=== PATIENT | female | born 1980 | race American Indian/Alaskan Native ===

== ENCOUNTER 2021-11-01 20:21 | Emergency (ER) | payer OTHER ==
[2021-11-01 21:28] VITALS: BP 132/95
[2021-11-01] MEDS ORDERED: BUTALB/ACETAMINOPHEN/CAFFEINE TAB PO ONE (21:37)
[2021-11-01] MEDS ORDERED: KETOROLAC 30 MG/1 ML INJ IM ONE (21:37)
[2021-11-01] MEDS ORDERED: ONDANSETRON 4 MG ODT TAB PO ONE (21:37)
[2021-11-01] MEDS ORDERED: diazePAM 5 MG TAB PO ONE (21:38)
--- NOTE | 2021-11-01 22:11 | Emergency Department Report ---
ED Headache HPI - General Chief Complaint: Headache Stated Complaint: HEADACHE/BLOOD PRESSURE/LT ARM PAIN - History of Present Illness Initial Comments: Patient is a 41-year-old -Portuguese female with a history of migraine headaches who presents to the ED with complaint of acute onset persistent headache which initially was occipital in location but has since spread globally with nausea for the last 2 days. Patient states that her blood pressure was also initially evaluated. Patient denies dizziness, syncope, vomiting, chest pain or shortness of breath, change in vision, neck pain, abdominal pain, fever, chills, traumatic injury, seizures or lifting and back pain. Timing/Duration: constant, waxing and waning, other (2 days) Quality: severe, constant, pressure, sharp, throbbing Head Injury Location: global Recent Head Trauma: chronic headaches Associated Symptoms: denies symptoms, nausea/vomiting. denies: confusion, fatigue, facial pain, fever/chills, flushing, loss of consciousness, nasal congestion, nasal drainage, numbness in legs/feet, rash, seizures, sinus infection, stiff neck, weakness Allergies/Adverse Reactions: Allergies Cherry Tree And Derivatives Adverse Reaction (Verified 11/01/21 21:19) Unknown causes migraines Home Medications: Ambulatory Orders Butalb/Acetamin/Caff 50-325-40 [Fioricet 50-325-40] 1 - 2 tab PO Q6HR PRN #15 tab 11/01/21 Ibuprofen [Motrin] 800 mg PO Q8HR PRN #30 tablet 11/01/21 Ondansetron [Zofran Odt] 4 mg PO Q6HR PRN #15 tab.rapdis 11/01/21 ED Review of Systems ROS: Stated complaint: HEADACHE/BLOOD PRESSURE/LT ARM PAIN Other details as noted in HPI Constitutional: denies: chills, fever Eyes: denies: eye pain, eye discharge, vision change ENT: denies: ear pain, throat pain, congestion Respiratory: denies: cough, shortness of breath, wheezing Cardiovascular: denies: chest pain, palpitations Endocrine: no symptoms reported Gastrointestinal: nausea. denies: abdominal pain, diarrhea Genitourinary: denies: urgency, dysuria, discharge Musculoskeletal: denies: back pain, joint swelling, arthralgia Skin: denies: rash, lesions Neurological: headache. denies: weakness, paresthesias Psychiatric: denies: anxiety, depression Hematological/Lymphatic: denies: easy bleeding, easy bruising ED Past Medical Hx - Past Medical History Previous Medical History?: Yes Hx Headaches / Migraines: Yes - Surgical History Past Surgical History?: No - Medications Home Medications: Home Medications Medication Instructions Recorded Confirmed Last Taken Type Butalb/Acetamin/Caff 50-325-40 1 - 2 tab PO Q6HR PRN #15 tab 11/01/21 Unknown Rx [Fioricet 50-325-40] Ibuprofen [Motrin] 800 mg PO Q8HR PRN #30 tablet 11/01/21 Unknown Rx Ondansetron [Zofran Odt] 4 mg PO Q6HR PRN #15 tab.rapdis 11/01/21 Unknown Rx ED Physical Exam - General Limitations: No Limitations General appearance: alert, in no apparent distress - Head Head exam: Present: atraumatic, normocephalic, normal inspection - Eye Eye exam: Present: normal appearance, PERRL, EOMI Pupils: Present: normal accommodation - ENT ENT exam: Present: normal exam, normal orophraynx, mucous membranes moist, TM's normal bilaterally, normal external ear exam - Neck Neck exam: Present: normal inspection, full ROM. Absent: tenderness - Respiratory Respiratory exam: Present: normal lung sounds bilaterally. Absent: respiratory distress, wheezes, rales, rhonchi, chest wall tenderness, accessory muscle use, decreased breath sounds, prolonged expiratory - Cardiovascular Cardiovascular Exam: Present: regular rate, normal rhythm, normal heart sounds. Absent: systolic murmur, diastolic murmur, rubs, gallop - GI/Abdominal GI/Abdominal exam: Present: soft, normal bowel sounds. Absent: tenderness, guarding, rebound, hyperactive bowel sounds, hypoactive bowel sounds, organomegaly, mass, bruit - Extremities Exam Extremities exam: Present: normal inspection, full ROM, normal capillary refill - Back Exam Back exam: Present: normal inspection, full ROM. Absent: tenderness, CVA tenderness (R), CVA tenderness (L), muscle spasm, paraspinal tenderness, vertebral tenderness - Neurological Exam Neurological exam: Present: alert, oriented X3, CN II-XII intact, normal gait, reflexes normal - Psychiatric Psychiatric exam: Present: normal affect, normal mood - Skin Skin exam: Present: warm, dry, intact, normal color. Absent: rash ED Course Vital Signs 11/01/21 11/01/21 11/01/21 21:17 21:52 21:53 Temperature 98.9 F Pulse Rate 70 Respiratory 16 145 H 14 Rate Blood Pressure 132/95 [Right] O2 Sat by Pulse 100 Oximetry ED Medical Decision Making - Medical Decision Making This is a 41-year-old -Portuguese female with a history of migraine headaches who presents to the ED with complaint of acute onset persistent headache which initially was occipital in location but has since spread globally with nausea for the last 2 days. Patient states that her blood pressure was also initially evaluated. In the ED, patient is alert and oriented x3 and is not in any distress. Patient was treated in the ED with pain medications and antiemetics. On reevaluation, patient's headache resolved with medication. Patient is hemodynamically stable and was discharged home on medications and advised to follow-up with her primary care physician in 7 to 10 days for reevaluation or return to the ED immediately if symptoms get worse. - Differential Diagnosis Tension headache; Migraine headache; Cluster headache Critical care attestation.: If time is entered above; I have spent that time in minutes in the direct care of this critically ill patient, excluding procedure time. ED Disposition Clinical Impression: Migraine headache without aura Qualifiers: Status migrainosus presence: without status migrainosus Intractability: not intractable Qualified Code(s): G43.009 - Migraine without aura, not intractable, without status migrainosus Nausea and/or vomiting Qualifiers: Vomiting type: unspecified Qualified Code(s): R11.2 - Nausea with vomiting, unspecified Disposition: 01 HOME / SELF CARE / HOMELESS Is pt being admited?: No Does the pt Need Aspirin: No Condition: Stable Instructions: Migraine Headache, [id number], Nausea and Vomiting, Adult, [id number] Additional Instructions: Take medication with food, drink plenty of fluids, follow-up with your primary care physician in 5 to 7 days for reevaluation. Return to the ED immediately if symptoms get worse. Prescriptions: Butalb/Acetamin/Caff 50-325-40 [Fioricet 50-325-40] 1 - 2 tab PO Q6HR PRN #15 tab PRN Reason: Headache Ibuprofen [Motrin] 800 mg PO Q8HR PRN #30 tablet PRN Reason: Pain , Severe (7-10) Ondansetron [Zofran Odt] 4 mg PO Q6HR PRN #15 tab.rapdis PRN Reason: Nausea Referrals: [facility] [Provider Group] - 7-10 days Time of Disposition: 22:12 Print Language: SOMALI
== END 2021-11-01 20:22 | disposition home or self-care (01) ==
LOC: ED 20:21
DX: G43.909 Migraine, unspecified, not intractable, without status migrainosus (principal); Z91.018 Allergy to other foods
CPT/HCPCS: 96372; 99282; J1885; J3490; Q0162